=== PATIENT | female | born 1990 | race Two or more races ===

== ENCOUNTER 2018-06-22 06:31 | Emergency (ER) | payer SELFPAY ==
[~2018-06-22] VITALS: Ht 162.6 cm; Wt 63.5 kg
[~2018-06-22 06:31] MED LIST: FLUC150T PO; METR-84 PO
[2018-06-22 06:40] VITALS: BP 115/67
[2018-06-22] MEDS ORDERED: LORazepam 1 MG TABLET PO ONE (07:00)
[2018-06-22 08:30] LABS: BASO % 1 % (0-3); EOS # 0.1 x10^3/uL (0.0-0.7); EOS % 1 % (0-3); HEMATOCRIT 30.6 % (36.0-47.0); HEMOGLOBIN 10.1 g/dL (12.0-15.5); LYMPH # 1.4 x10^3/uL (1.0-4.8); LYMPH % 23 % (24-48); MEAN CORPUSCULAR HEMOGLOBIN 23 pg (25-35); MEAN CORPUSCULAR HGB CONC 33 g/dL (31-37); MEAN CORPUSCULAR VOLUME 71 fL (79-100); MONO # 0.5 x10^3/uL (0.0-1.1); MONO % 9 % (0-9); NEUT # 3.9 x10^3uL (1.8-7.7); NEUT % 66 % (31-73); PLATELET COUNT 253 x10^3/uL (140-400); RED BLOOD COUNT 4.31 x10^6/uL (3.50-5.40); RED CELL DISTRIBUTION WIDTH 15.3 % (11.5-14.5); WHITE BLOOD COUNT 5.9 x10^3/uL (4.0-11.0)
[2018-06-22 08:43] LABS: CALCIUM 9.2 mg/dL (8.5-10.1); CREATININE 0.6 mg/dL (0.6-1.0); POTASSIUM 3.7 mmol/L (3.5-5.1)
[2018-06-22 08:49] LABS: ALBUMIN 3.8 g/dL (3.4-5.0); ALBUMIN/GLOBULIN RATIO 0.9 (1.0-1.7); TOTAL BILIRUBIN 0.5 mg/dL (0.2-1.0); TOTAL PROTEIN 8.1 g/dL (6.4-8.2)
[2018-06-22 08:50] LABS: ACETAMIN < 2.0 mcg/ml (10-30); ETHANOL < 10 mg/dL (0-10); SALIC < 2.8 mg/dL (2.8-20.0)
[2018-06-22 10:37] LABS: PLT ESTIMATE ADEQUATE (ADEQUATE)
[2018-06-22 10:38] LABS: ANISOCYTOSIS PRESENT; HYPOCHROMIA PRESENT; MICROCYTOSIS PRESENT
--- NOTE | 2018-06-22 10:38 | PHYS DOC ---
Past Medical History Past Medical History: No Pertinent History Past Surgical History: No Surgical History Alcohol Use: Occasionally Drug Use: None Adult General Chief Complaint Chief Complaint: DEPRESSION HPI HPI Patient is a 27 year old [female who presents with severe stress. Apparently she walking her apartment 2 days ago and witnessed the recent head body of her apparently he committed suicide just moments before. Since then she has not been able to eat or drink she has not been talking she is rolled up in a ball she is crying constantly she has multiple children at home. She denies suicidality she does have a prior history of depression she is brought in by her to family members Review of Systems Review of Systems Unable secondary to patient cooperation Current Medications Current Medications Current Medications Medications (Trade) Dose Ordered Sig/Doretha Start Time Stop Time Status Last Admin Dose Admin Lorazepam (Ativan) 2 mg 1X ONCE 06/22/18 07:00 06/22/18 07:01 DC 06/22/18 07:03 2 MG Allergies Allergies Allergies Coded Allergies Type Severity Reaction Last Updated Verified No Known Drug Allergies 01/19/14 No Physical Exam Physical Exam Constitutional: Well developed, well nourished, no acute distress, non-toxic appearance. [] HENT: Normocephalic, atraumatic, bilateral external ears normal, oropharynx moist, no oral exudates, nose normal. [] Eyes: PERRLA, EOMI, conjunctiva normal, no discharge. [] Neck: Normal range of motion, no tenderness, supple, no stridor. [] Pulmonary: Normal respiratory effort no increased work of breathing no obvious chest wall trauma Abdomen: Bowel sounds normal, soft, no tenderness, no masses, no pulsatile masses. [] Skin: Warm, dry, no erythema, no rash. [] Back: No tenderness, no CVA tenderness. [] Extremities: No tenderness, no cyanosis, no clubbing, ROM intact, no edema. [] Neurologic: Alert and oriented X 3, normal motor function, normal sensory function, no focal deficits noted. [] Psychologic: Tearful withdrawn not making eye contact denies suicidal ideation Current Patient Data Vital Signs Vital Signs Date Time Temp Pulse Resp B/P (MAP) Pulse Ox O2 Delivery O2 Flow Rate FiO2 06/22/18 06:40 99.0 81 16 115/67 (83) 98 Room Air 99.0 Lab Values Laboratory Tests Test 06/22/18 08:15 06/22/18 09:33 White Blood Count 5.9 x10^3/uL (4.0-11.0) Red Blood Count 4.31 x10^6/uL (3.50-5.40) Hemoglobin 10.1 g/dL (12.0-15.5) L Hematocrit 30.6 % (36.0-47.0) L Mean Corpuscular Volume 71 fL (79-100) L Mean Corpuscular Hemoglobin 23 pg (25-35) L Mean Corpuscular Hemoglobin Concent 33 g/dL (31-37) Red Cell Distribution Width 15.3 % (11.5-14.5) H Platelet Count 253 x10^3/uL (140-400) Neutrophils (%) (Auto) 66 % (31-73) Lymphocytes (%) (Auto) 23 % (24-48) L Monocytes (%) (Auto) 9 % (0-9) Eosinophils (%) (Auto) 1 % (0-3) Basophils (%) (Auto) 1 % (0-3) Neutrophils # (Auto) 3.9 x10^3uL (1.8-7.7) Lymphocytes # (Auto) 1.4 x10^3/uL (1.0-4.8) Monocytes # (Auto) 0.5 x10^3/uL (0.0-1.1) Eosinophils # (Auto) 0.1 x10^3/uL (0.0-0.7) Basophils # (Auto) 0.0 x10^3/uL (0.0-0.2) Platelet Estimate Pending Sodium Level 139 mmol/L (136-145) Potassium Level 3.7 mmol/L (3.5-5.1) Chloride Level 103 mmol/L (98-107) Carbon Dioxide Level 27 mmol/L (21-32) Anion Gap 9 (6-14) Blood Urea Nitrogen 11 mg/dL (7-20) Creatinine 0.6 mg/dL (0.6-1.0) Estimated GFR (Cockcroft-Gault) 119.0 BUN/Creatinine Ratio 18 (6-20) Glucose Level 104 mg/dL (70-99) H Calcium Level 9.2 mg/dL (8.5-10.1) Total Bilirubin 0.5 mg/dL (0.2-1.0) Aspartate Amino Transferase (AST) 14 U/L (15-37) L Alanine Aminotransferase (ALT) 19 U/L (14-59) Alkaline Phosphatase 62 U/L (46-116) Total Protein 8.1 g/dL (6.4-8.2) Albumin 3.8 g/dL (3.4-5.0) Albumin/Globulin Ratio 0.9 (1.0-1.7) L Salicylates Level < 2.8 mg/dL (2.8-20.0) L Salicylate Last Dose Date Unknown Salicylate Last Dose Time Unknown Acetaminophen Level < 2.0 mcg/ml (10-30) L Acetaminophen Last Dose Date Unknown Acetaminophen Last Dose Time Unknown Ethyl Alcohol Level < 10 mg/dL (0-10) POC Urine HCG, Qualitative Hcg negative (Negative) Laboratory Tests 06/22/18 08:15 Laboratory Tests 06/22/18 08:15 EKG EKG [] Radiology/Procedures Radiology/Procedures [] Course & Med Decision Making Course & Med Decision Making Pertinent Labs and Imaging studies reviewed. (See chart for details) []Acute stress reaction. Patient is apparently unable to eat or drink or talk much. She is in severe tearful distress. She is denying overt suicidal ideation Mary Lou came to see her from the psychiatric assessment team with the plan to send her to [facility] to keep her safe tonight as well as to get her into counseling and further treatment tomorrow. Medically cleared Phan Disclaimer Dragon Disclaimer This electronic medical record was generated, in whole or in part, using a voice recognition dictation system. Departure Departure Impression: Primary Impression: Acute stress reaction Disposition: 01 HOME, SELF-CARE Condition: STABLE Additional Instructions: THANK YOU FOR COMING TO ER. PLEASE GO TO I FROM HERE FOR FURTHER SUPPORT AND COUNSELING TANISHA TAVAREZ MD Jun 22, 2018 10:38
[2018-06-22 10:43] LABS: AMPHETAMINE/METHAMPHETAMINE NEG (NEG); BARBITURATES NEG (NEG); BENZODIAZEPINES NEG (NEG); CANNABINOIDS NEG (NEG); COCAINE NEG (NEG); METHADONE NEG (NEG); OPIATES NEG (NEG); PHENCYCLIDINE NEG (NEG)
== END 2018-06-22 10:41 | disposition home or self-care (01) ==
LOC: ER 06:31
DX: F43.0 Acute stress reaction (principal); F32.9 Major depressive disorder, single episode, unspecified
CPT/HCPCS: 36415; 80053; 80307; 80329; 81025; 85025; 99283; G0480; G6039

== ENCOUNTER 2018-08-03 08:06 | Emergency (ER) | payer SELFPAY ==
[~2018-08-03] VITALS: Ht 162.6 cm; Wt 61.3 kg
[2018-08-03 08:12] VITALS: BP 111/56
[2018-08-03] MEDS ORDERED: KETOROLAC 60 MG/2 ML VIAL. IM ONE (08:30)
--- NOTE | 2018-08-03 08:47 | RAD ---
CHEST PA LATERAL Clinical indications: PT STATES CHEST PAIN THAT RADIATES UP INTO SHOULDER, STARTED YESTERDAY. COMPARISON: None available. Findings: No acute lung infiltrate or pleural effusion or pulmonary edema or lung mass or pneumothorax is seen. The heart size, pulmonary vasculature, mediastinum and both corbin are unremarkable. The osseous structures appear intact. Impression: No acute radiographic abnormality is seen. Electronically signed by: Fred Ferreira MD (08/03/2018 8:43 AM) [facility]
--- NOTE | 2018-08-03 08:53 | PHYS DOC ---
Past Medical History Past Medical History: No Pertinent History Past Surgical History: No Surgical History Alcohol Use: Occasionally Drug Use: None Adult General Chief Complaint Chief Complaint: CHEST WALL PAIN HPI HPI Patient is a 27 year old female presents for evaluation of cough and left upper chest pain for 2-3 days. She reports his had similar episodes over the past week. Denies any fevers. Has not tried any medication at home prior to coming to the emergency room. As any shortness of breath. Does not use any oral contraceptives. Reports pain in this area when she moves. Review of Systems Review of Systems Constitutional: Denies fever or chills [] Eyes: Denies change in visual acuity, redness, or eye pain [] HENT: Denies nasal congestion or sore throat [] Respiratory: + cough, denies shortness of breath [] Cardiovascular: No additional information not addressed in HPI [] GI: Denies abdominal pain, nausea, vomiting, bloody stools or diarrhea [] : Denies dysuria or hematuria [] Musculoskeletal: Denies back pain or joint pain [] Integument: Denies rash or skin lesions [] Neurologic: Denies headache, focal weakness or sensory changes [] Endocrine: Denies polyuria or polydipsia [] All other systems were reviewed and found to be within normal limits, except as documented in this note. Current Medications Current Medications Current Medications Medications (Trade) Dose Ordered Sig/Doretha Start Time Stop Time Status Last Admin Dose Admin Ketorolac Tromethamine (Toradol Im) 30 mg 1X ONCE 08/03/18 08:30 08/03/18 08:31 DC 08/03/18 08:45 30 MG Allergies Allergies Allergies Coded Allergies Type Severity Reaction Last Updated Verified No Known Drug Allergies 01/19/14 No Physical Exam Physical Exam Constitutional: Well developed, well nourished, no acute distress, non-toxic appearance. [] Neck: Normal range of motion, no tenderness, supple, no stridor. [] Cardiovascular:Heart rate regular rhythm, no murmur [] Lungs & Thorax: Bilateral breath sounds clear to auscultation [] Skin: Warm, dry, no erythema, no rash. [] Back: No tenderness, no CVA tenderness. [] Extremities: No tenderness, no cyanosis, no clubbing, ROM intact, no edema. [] Neurologic: Alert and oriented X 3, normal motor function, normal sensory function, no focal deficits noted. [] Psychologic: Affect normal, judgement normal, mood normal. [] Current Patient Data Vital Signs Vital Signs Date Time Temp Pulse Resp B/P (MAP) Pulse Ox O2 Delivery O2 Flow Rate FiO2 08/03/18 08:12 98.1 86 16 111/56 (74) 100 Room Air 98.1 Lab Values Laboratory Tests Test 08/03/18 08:40 POC Troponin I 0.00 ng/ml (<0.08) EKG EKG [EKG, read by ER physician, heart rate 72, normal sinus rhythm, no STEMI] Radiology/Procedures Radiology/Procedures [REASON: chest pain PROCEDURE: CHEST PA & LATERAL CHEST PA LATERAL Clinical indications: PT STATES CHEST PAIN THAT RADIATES UP INTO SHOULDER, STARTED YESTERDAY. COMPARISON: None available. Findings: No acute lung infiltrate or pleural effusion or pulmonary edema or lung mass or pneumothorax is seen. The heart size, pulmonary vasculature, mediastinum and both corbin are unremarkable. The osseous structures appear intact. Impression: No acute radiographic abnormality is seen. Electronically signed by: Miguel Ferreira MD (08/03/2018 8:43 AM) [facility] DICTATED and SIGNED BY: MIGUEL FERREIRA MD DATE: 08/03/18 0842] Course & Med Decision Making Course & Med Decision Making Pertinent Labs and Imaging studies reviewed. (See chart for details) [Cardiac etiology is unlikely, troponin negative, EKG normal sinus rhythm, patient is given IM Toradol and recommend follow-up with primary care doctor.] Dragon Disclaimer Dragon Disclaimer This electronic medical record was generated, in whole or in part, using a voice recognition dictation system. Departure Departure Impression: Primary Impression: Atypical chest pain Disposition: HOME, SELF-CARE Condition: STABLE Referrals: CAYDEN SHAIKH MD (PCP) Patient Instructions: Chest Pain (Nonspecific), [id number] CAROL ANN PEREA MORTGAGE PROCESSING CLERK Aug 03, 2018 08:53
--- NOTE | 2018-08-03 10:11 | EKG ---
[facility] [address] [place] [address] Test Date: 2018-08-03 Test Time: 08:12:08 Pat Name: ARPIT DAWSON Department: Room: Gender: F Manager Provider Relations: : 1990 Requested By: CAROL ANN PEREA Order Number: [id number] Reading MD: Measurements Intervals [place] Rate: 72 P: 63 NH: 128 QRS: 46 QRSD: 94 T: 46 QT: 372 QTc: 408 Interpretive Statements SINUS RHYTHM NORMAL ECG No previous ECG available for comparison
== END 2018-08-03 09:20 | disposition home or self-care (01) ==
LOC: ER 08:06
DX: R07.89 Other chest pain (principal); R05 Cough; R06.02 Shortness of breath
CPT/HCPCS: 71046; 84484; 93005; 96372; 99283; J1885

== ENCOUNTER 2019-01-10 17:07 | Emergency (ER) | payer SELFPAY ==
[~2019-01-10] VITALS: Ht 162.6 cm; Wt 59.0 kg
[~2019-01-10 17:07] MED LIST changes: +METR-34 PO; -METR-84 PO
[2019-01-10 17:22] LABS: BILIRUBIN,URINE NEGATIVE (NEG); CLARITY,URINE CLEAR; COLOR,URINE YELLOW; NITRITE,URINE NEGATIVE (NEG); PH,URINE 5.5; PROTEIN,URINE NEGATIVE (NEG-TRACE)
[2019-01-10 17:25] LABS: U PREG PATIENT NEGATIVE (NEG)
[2019-01-10 17:30] LABS: BACTERIA,URINE 0 /HPF (0-FEW); RBC,URINE 0 /HPF (0-2); SQUAMOUS EPITHELIAL CELL,UR MOD /LPF
[2019-01-10 18:17] VITALS: BP 114/68
--- NOTE | 2019-01-10 18:36 | PHYS DOC ---
Past Medical History Past Medical History: No Pertinent History (MARTI MAR APRN) Past Surgical History: No Surgical History (MARTI MAR APRN) Alcohol Use: Occasionally Drug Use: None (MARTI MAR APRN) Adult General Chief Complaint Chief Complaint: URINARY FREQUENCY HPI HPI Patient is a 28 year old female who presents to the emergency department with complaints of dysuria for 2 days. She also reports concerns of a possible sexually transmitted infection, patient states that she had intercourse with a new partner approximately 5 days ago and the condom broke. She denies any irregular vaginal discharge, vaginal itching, or vaginal odor. She denies any fever, nausea, vomiting, diarrhea, abdominal pain, hematuria, or back pain. Patient denies any pain at this time. (MARTI MAR APRN) Review of Systems Review of Systems Constitutional: Denies fever or chills [] Eyes: Denies redness, or eye pain [] HENT: Denies nasal congestion or sore throat [] Respiratory: Denies cough or shortness of breath [] Cardiovascular: No additional information not addressed in HPI [] GI: Denies abdominal pain, nausea, vomiting,or diarrhea [] : reports dysuria, denies abnormal vaginal discharge, reports concerns of STI as had a condom break 4 days ago. Musculoskeletal: Denies back pain or joint pain [] Integument: Denies rash or skin lesions [] Neurologic: Denies headache, focal weakness or sensory changes [] Complete systems were reviewed and found to be within normal limits, except as documented in this note. (MARTI MAR APRN) Current Medications Current Medications Current Medications Medications (Trade) Dose Ordered Sig/Doretha Start Time Stop Time Status Last Admin Dose Admin Azithromycin (Zithromax) 1,000 mg 1X ONCE 01/10/19 18:45 01/10/19 18:46 DC 01/10/19 18:31 1,000 MG Ceftriaxone Sodium (Rocephin Im) 250 mg 1X ONCE 01/10/19 18:45 01/10/19 18:46 DC 01/10/19 18:31 250 MG (LASHON FRIEND DO) Allergies Allergies Allergies Coded Allergies Type Severity Reaction Last Updated Verified No Known Drug Allergies 01/19/14 No (LASHON FRIEND DO) Physical Exam Physical Exam Constitutional: Well developed, well nourished, no acute distress, non-toxic appearance. [] HENT: Normocephalic, atraumatic, bilateral external ears normal, nose normal. [] Eyes: conjunctiva normal, no discharge. [] Neck: Normal range of motion, no stridor. [] Cardiovascular:Heart rate regular rhythm Lungs & Thorax: Bilateral breath sounds clear to auscultation [] Pelvic Exam: Frame Coverer present Abdomen: Nontender External Genitalia: mild erythema of labia Speculum: Normal vaginal mucosa, normal cervical discharge; large amount of white discharge Bimanual: No adnexal masses or tenderness, No CMT Skin: Warm, dry, no erythema, no rash. [] Extremities: No cyanosis, ROM intact, no edema. [] Neurologic: Alert and oriented X 3, no focal deficits noted. [] Psychologic: Affect normal, judgement normal, mood normal. [] (MARTI MAR APRN) Current Patient Data Vital Signs Vital Signs Date Time Temp Pulse Resp B/P (MAP) Pulse Ox O2 Delivery O2 Flow Rate FiO2 01/10/19 18:17 98.3 73 18 114/68 (83) 99 Room Air 98.3 (LASHON FRIEND DO) Lab Values Laboratory Tests Test 01/10/19 17:00 01/10/19 17:16 Urine Collection Type Unknown Urine Color Yellow Urine Clarity Clear Urine pH 5.5 Urine Specific [place] 1.025 Urine Protein Negative mg/dL (NEG-TRACE) Urine Glucose (UA) Negative mg/dL (NEG) Urine Ketones (Stick) Negative mg/dL (NEG) Urine Blood Negative (NEG) Urine Nitrite Negative (NEG) Urine Bilirubin Negative (NEG) Urine Urobilinogen Dipstick 1.0 mg/dL (0.2 mg/dL) Urine Leukocyte Esterase Negative (NEG) Urine RBC 0 /HPF (0-2) Urine WBC 1-4 /HPF (0-4) Urine Squamous Epithelial Cells Mod /LPF Urine Bacteria 0 /HPF (0-FEW) Urine Mucus Marked /LPF Urine Test Negative (NEG) POC Urine HCG, Qualitative Hcg negative (Negative) Microbiology 01/10/19 Wet Prep - Final, Complete (LASHON FRIEND DO) EKG EKG [] (MARTI MAR APRN) Radiology/Procedures Radiology/Procedures [] (MARTI MAR APRN) Course & Med Decision Making Course & Med Decision Making Pertinent Labs and Imaging studies reviewed. (See chart for details) dx: Bacterial vaginosis, contact with the next suspected exposure to STI, contact with new sexual partner. Wet mount positive for clue cells suggestive of bacterial vaginosis UA unremarkable Gonorrhea and chlamydia tests are pending Patient was treated prophylactically with 250 mg of IM Rocephin, and 1 g of PO Zithromax. Patient was instructed to avoid having intercourse until the results of gonorrhea and chlamydia testing are available, patient was notified that these results would not be available for 48 hours. If one or both of these tests is positive, patient needs to refrain from intercourse for approximately 1 week following the treatment of any current partners. Patient verbalized an understanding of home care, medications, follow-up, and return to ED instructions and was in agreement with the plan of care. [] (MARTI MAR APRN) Dragon Disclaimer Dragon Disclaimer This electronic medical record was generated, in whole or in part, using a voice recognition dictation system. (MARTI MAR APRN) Departure Departure Impression: Primary Impression: Bacterial vaginosis Additional Impressions: Contact with and (suspected) exposure to infections with a predominantly sexual mode of transmission Contact with new sexual partner Disposition: 01 HOME, SELF-CARE Condition: STABLE Referrals: CAYDEN SHAIKH MD (PCP) Patient Instructions: Bacterial Vaginosis, [id number], Sexually Transmitted Disease, [id number] Additional Instructions: Fill the prescription and use it as directed. You were treated for suspected sexually transmitted infection. You need to avoid having intercourse until the results of gonorrhea and chlamydia testing are available, these results will not be available for 48 hours. If one or both of these tests is positive, you need to refrain from intercourse for approximately 1 week following the treatment of any current partners. Follow-up with your primary care doctor if symptoms persist, return to the ER if symptoms worsen. Scripts Metronidazole (FLAGYL) 500 Mg Tablet 1 TAB PO BID for 7 Days, #14 TAB 0 Refills Prov: MARTI MAR APRN 01/10/19 Attending Signature Attending Signature I have reviewed the PA/NET WEB DEVELOPER's note and plan of care. I was available for consultation as needed during the patient's visit in the emergency department. I agree with the clinical impression, plan, and disposition. (LASHON FRIEND DO) Problem Qualifiers MARTI MAR ROLLER Jan 10, 2019 18:36 LASHON FRIEND DO Jan 11, 2019 05:23
[2019-01-10] MEDS ORDERED: AZITHROMYCIN 250 MG TABLET. PO ONE (18:45)
[2019-01-10] MEDS ORDERED: cefTRIAXone IM 250 MG VIAL IM ONE (18:45)
[2019-01-10] MEDS ORDERED: METR500T PO (18:46)
[2019-01-13 00:07] LABS: GC PROBE Negative (Negative)
== END 2019-01-10 19:03 | disposition home or self-care (01) ==
LOC: ER 17:07
DX: N76.0 Acute vaginitis (principal); B96.89 Other specified bacterial agents as the cause of diseases classified elsewhere; Z20.2 Contact with and (suspected) exposure to infections with a predominantly sexual mode of transmission
CPT/HCPCS: 81001; 81025; 87491; 87591; 96372; 99285; J0696; Q0111; Q0144

== ENCOUNTER 2020-05-30 00:36 | Emergency (ER) | payer SELFPAY ==
[~2020-05-30] VITALS: Ht 162.6 cm; Wt 65.7 kg
[~2020-05-30 00:36] MED LIST changes: +METR500T PO
[2020-05-30 02:26] LABS: BASO # 0.1 x10^3/uL (0.0-0.2); BASO % 1 % (0-3); EOS # 0.2 x10^3/uL (0.0-0.7); EOS % 2 % (0-3); HEMATOCRIT 28.2 % (36.0-47.0); HEMOGLOBIN 8.8 g/dL (12.0-15.5); LYMPH # 2.4 x10^3/uL (1.0-4.8); LYMPH % 25 % (24-48); MEAN CORPUSCULAR HEMOGLOBIN 20 pg (25-35); MEAN CORPUSCULAR HGB CONC 31 g/dL (31-37); MEAN CORPUSCULAR VOLUME 65 fL (79-100); MONO # 0.7 x10^3/uL (0.0-1.1); MONO % 7 % (0-9); NEUT # 6.3 x10^3/uL (1.8-7.7); NEUT % 65 % (31-73); PLATELET COUNT 294 x10^3/uL (140-400); RED BLOOD COUNT 4.33 x10^6/uL (3.50-5.40); RED CELL DISTRIBUTION WIDTH 18.3 % (11.5-14.5); WHITE BLOOD COUNT 9.6 x10^3/uL (4.0-11.0)
[2020-05-30 02:49] LABS: BILIRUBIN,URINE NEGATIVE (NEG); CLARITY,URINE BLOODY; COLOR,URINE RED; NITRITE,URINE NEGATIVE (NEG); PH,URINE 6.5 (<5.0-8.0); PROTEIN,URINE 100 mg/dL (NEG-TRACE); RBC,URINE TNTC /HPF (0-2); UROBILINOGEN,URINE 0.2 mg/dL (0.2 mg/dL)
[2020-05-30 02:50] LABS: BACTERIA,URINE FEW /HPF (0-FEW)
[2020-05-30 03:31] LABS: ANISOCYTOSIS SLIGHT; HYPOCHROMIA MARKED; MICROCYTOSIS MOD; PLT ESTIMATE ADEQUATE (ADEQUATE)
--- NOTE | 2020-05-30 04:54 | ED.ADGEN ---
Past Medical History Past Medical History: No Pertinent History Past Surgical History: No Surgical History Smoking Status: Never Smoker Alcohol Use: Occasionally Drug Use: None General Adult EDM: Chief Complaint: VAGINAL BLEEDING HPI: HPI: Patient is a 29-year-old female at 4 weeks gestation who presents to the emergency room with vaginal bleeding and lower abdominal cramping that started earlier today. She does not believe she has seen any passage of tissue. She has not had an ultrasound yet with this . She denies any other symptoms. Review of Systems: Review of Systems: Complete ROS is negative unless otherwise documented in HPI Allergies: Allergies: Allergies Coded Allergies Type Severity Reaction Last Updated Verified No Known Drug Allergies 01/19/14 No Physical Exam: PE: General: Awake, alert, NAD. Well Nourished, well hydrated. Cooperative HEENT: Atraumatic, EOMI, PERRL, airway patent, moist oral mucosa Neck: Supple, trachea midline Respiratory: CTA bilaterally, normal effort, no wheezing/crackles CV: RRR, no murmur, cap refill <2 GI: Soft, nondistended, nontender, no masses MSK: No obvious deformities Skin: Warm, dry, intact Neuro: A&O x3, speech NL, sensory and motor grossly intact, no focal deficits Psych: Normal affect, normal mood, not suicidal or homicidal Current Patient Data: Labs: Laboratory Tests Test 05/30/20 02:06 05/30/20 02:07 05/30/20 02:10 White Blood Count 9.6 x10^3/uL (4.0-11.0) Red Blood Count 4.33 x10^6/uL (3.50-5.40) Hemoglobin 8.8 g/dL (12.0-15.5) L Hematocrit 28.2 % (36.0-47.0) L Mean Corpuscular Volume 65 fL (79-100) L Mean Corpuscular Hemoglobin 20 pg (25-35) L Mean Corpuscular Hemoglobin Concent 31 g/dL (31-37) Red Cell Distribution Width 18.3 % (11.5-14.5) H Platelet Count 294 x10^3/uL (140-400) Neutrophils (%) (Auto) 65 % (31-73) Lymphocytes (%) (Auto) 25 % (24-48) Monocytes (%) (Auto) 7 % (0-9) Eosinophils (%) (Auto) 2 % (0-3) Basophils (%) (Auto) 1 % (0-3) Neutrophils # (Auto) 6.3 x10^3/uL (1.8-7.7) Lymphocytes # (Auto) 2.4 x10^3/uL (1.0-4.8) Monocytes # (Auto) 0.7 x10^3/uL (0.0-1.1) Eosinophils # (Auto) 0.2 x10^3/uL (0.0-0.7) Basophils # (Auto) 0.1 x10^3/uL (0.0-0.2) Platelet Estimate Adequate (ADEQUATE) Hypochromasia Marked Anisocytosis Slight Microcytosis Mod Maternal Serum HCG Beta Subunit 690 mIU/mL (0-5) H Urine Collection Type Unknown Urine Color Red Urine Clarity Bloody Urine pH 6.5 (<5.0-8.0) Urine Specific [place] 1.015 (1.000-1.030) Urine Protein 100 mg/dL (NEG-TRACE) Urine Glucose (UA) Negative mg/dL (NEG) Urine Ketones (Stick) Negative mg/dL (NEG) Urine Blood Large (NEG) Urine Nitrite Negative (NEG) Urine Bilirubin Negative (NEG) Urine Urobilinogen Dipstick 0.2 mg/dL (0.2 mg/dL) Urine Leukocyte Esterase Trace (NEG) Urine RBC Tntc /HPF (0-2) Urine WBC 1-4 /HPF (0-4) Urine Squamous Epithelial Cells Mod /LPF Urine Bacteria Few /HPF (0-FEW) Urine Mucus Slight /LPF POC Urine HCG, Qualitative Hcg positive (Negative) Laboratory Tests 05/30/20 02:06 Vital Signs: Vital Signs Date Time Temp Pulse Resp B/P (MAP) Pulse Ox O2 Delivery O2 Flow Rate FiO2 05/30/20 01:30 98.4 72 16 120/81 (94) 98 Room Air 98.4 EKG: EKG: [] Heart Score: Risk Factors: Risk Factors: DM, Current or recent (<one month) smoker, HTN, HLP, family history of CAD, obesity. Risk Scores: Score 0 - 3: 2.5% MACE over next 6 weeks - Discharge Home Score 4 - 6: 20.3% MACE over next 6 weeks - Admit for Clinical Observation Score 7 - 10: 72.7% MACE over next 6 weeks - Early Invasive Strategies Radiology/Procedures: Radiology/Procedures: [] Course & Med Decision Making: Course & Med Decision Making Pertinent Labs and Imaging studies reviewed. (See chart for details) Patient is a 29-year-old female who presents to the emergency room with vaginal bleeding and cramping in early . Patient has a positive test and a beta-hCG of 600. CBC, type and screen, ultrasound were ordered to evaluate for need of RhoGam, amount of bleeding, and for an ectopic . Patient does not need rhogam. US does not show definitive . This could be related to miscarriage vs early . Patient will follow up in 2-3 days for repeat evaluation. Patient's test results and vitals while in the ED were fully reviewed and discussed with the patient. Patient is stable and at this time does not need admission to the hospital. We have discussed strict return precautions and the importance of following up with their Primary Care Physician. Patient stated understanding and was given an opportunity to ask any questions. Patient is in agreement with plan. Dragon Disclaimer: Dragon Disclaimer: This electronic medical record was generated, in whole or in part, using a voice recognition dictation system. Departure Departure Impression: Primary Impression: Threatened Disposition: 01 DC HOME SELF CARE/HOMELESS Condition: STABLE Referrals: CAYDEN SHAIKH MD (PCP) Patient Instructions: Vaginal Bleeding During , Exlk-or-Tctb Additional Instructions: Follow up in 48 hours for repeat lab. JOSHUA PEREZ MD May 30, 2020 04:54
[2020-05-30 05:01] VITALS: BP 104/59
--- NOTE | 2020-05-30 05:08 | RAD ---
EXAMINATION: OB <14 WKS W/TV (PELVIC ULTRASOUND) HISTORY: Reason: vaginal bleeding, / Spl. Instructions: / History: TECHNIQUE: Sonography of the pelvis was performed by transvaginal and transabdominal (limited) techniques. COMPARISON: None FINDINGS: Uterus: Measures 9.6 x 4.5 x 3.8 cm. No definite intrauterine gestational sac visualized. 3 mm ovoid hypoechogenicity in the anterior myometrium, nonspecific. Endometrium measures 3 mm in thickness. Questionable mild fluid in the cervical canal. Right ovary: Measures 2.6 x 1.5 x 1.7 cm. Normal sonographic appearance with documented arterial and venous flow. Left ovary: Measures 3.2 x 1.4 x 1.3 cm. Normal sonographic appearance with documented arterial and venous flow. Pelvic free fluid: None. IMPRESSION: No definite intrauterine gestational sac visualized. Questionable mild fluid in the cervical canal, nonspecific. Electronically signed by: Tunde Manrique DO (05/30/2020 5:05 AM) [facility]
== END 2020-05-30 05:40 | disposition home or self-care (01) ==
LOC: ER 00:36
DX: O20.0 Threatened abortion (principal); R10.30 Lower abdominal pain, unspecified; Z3A.01 Less than 8 weeks gestation of pregnancy
CPT/HCPCS: 36415; 76801; 76817; 81001; 81025; 84702; 85025; 86850; 86900; 86901; 99285

== ENCOUNTER → 2020-06-06 | Outpatient (CLI) | payer MEDICAID ==
[2020-05-30 05:01] VITALS: BP 104/59
== END ==
LOC: LAB 16:22
PROVIDERS: ATTEND Obstetrics & Gynecology
DX: N93.9 Abnormal uterine and vaginal bleeding, unspecified (principal)
CPT/HCPCS: 36415; 84702

== ENCOUNTER 2020-08-20 22:49 | Emergency (ER) | payer MEDICAID ==
[~2020-08-20] VITALS: Ht 162.6 cm; Wt 61.4 kg
[2020-08-20 23:38] LABS: BILIRUBIN,URINE NEGATIVE (NEG); CLARITY,URINE CLEAR; COLOR,URINE YELLOW; NITRITE,URINE NEGATIVE (NEG); PH,URINE 6.5 (<5.0-8.0); PROTEIN,URINE NEGATIVE (NEG-TRACE)
[2020-08-20 23:58] LABS: BACTERIA,URINE MANY /HPF (0-FEW)
[2020-08-21] LABS: RBC,URINE 0 /HPF (0-2)
--- NOTE | 2020-08-21 00:40 | PHYS DOC ---
Past Medical History Past Medical History: No Pertinent History Past Surgical History: No Surgical History Smoking Status: Never Smoker Alcohol Use: Occasionally Drug Use: None Adult General Chief Complaint Chief Complaint: ABDOMINAL PAIN HPI HPI Patient is a 29 year old female with no significant past medical history presents emergency department complaint of new onset of abdominal pain. Patient states that 1 week ago she was starting to have right lower quadrant abdominal pain rating to the back and was seen in an urgent care where she was diagnosed with a urinary tract infection. Patient states that she took a course of antibiotics which she completed 2 days ago and successfully completed and had significant improvement of her symptoms. However 2 days ago started having new onset of right upper quadrant abdominal pain not associated any nausea, vomiting, fever, chills, chest pain or shortness breath. Denies any dizziness or lightheadedness. Currently denies any dysuria, pyuria, vaginal bleeding or discharge Review of Systems Review of Systems Constitutional: Denies fever or chills [] Eyes: Denies change in visual acuity, redness, or eye pain [] HENT: Denies nasal congestion or sore throat [] Respiratory: Denies cough or shortness of breath [] Cardiovascular: No additional information not addressed in HPI [] GI: Denies abdominal pain, nausea, vomiting, bloody stools or diarrhea [] : Denies dysuria or hematuria [] Musculoskeletal: Denies back pain or joint pain [] Integument: Denies rash or skin lesions [] Neurologic: Denies headache, focal weakness or sensory changes [] Endocrine: Denies polyuria or polydipsia [] All other systems were reviewed and found to be within normal limits, except as documented in this note. Allergies Allergies Allergies Coded Allergies Type Severity Reaction Last Updated Verified No Known Drug Allergies 01/19/14 No Physical Exam Physical Exam Constitutional: Well developed, well nourished, no acute distress, non-toxic appearance. [] HENT: Normocephalic, atraumatic, bilateral external ears normal, oropharynx moist, no oral exudates, nose normal. [] Eyes: PERRLA, EOMI, conjunctiva normal, no discharge. [] Neck: Normal range of motion, no tenderness, supple, no stridor. [] Cardiovascular:Heart rate regular rhythm, no murmur [] Lungs & Thorax: Bilateral breath sounds clear to auscultation [] Abdomen: Bowel sounds normal, soft, mild right upper quadrant tenderness, no masses, no pulsatile masses. [] Skin: Warm, dry, no erythema, no rash. [] Back: No tenderness, no CVA tenderness. [] Extremities: No tenderness, no cyanosis, no clubbing, ROM intact, no edema. [] Neurologic: Alert and oriented X 3, normal motor function, normal sensory function, no focal deficits noted. [] Psychologic: Affect normal, judgement normal, mood normal. [] Current Patient Data Vital Signs Vital Signs Date Time Temp Pulse Resp B/P (MAP) Pulse Ox O2 Delivery O2 Flow Rate FiO2 08/21/20 00:20 98.5 66 14 106/58 (74) 99 Room Air 98.5 Lab Values Laboratory Tests Test 08/20/20 23:03 08/20/20 23:07 Urine Collection Type Unknown Urine Color Yellow Urine Clarity Clear Urine pH 6.5 (<5.0-8.0) Urine Specific [place] 1.015 (1.000-1.030) Urine Protein Negative mg/dL (NEG-TRACE) Urine Glucose (UA) Negative mg/dL (NEG) Urine Ketones (Stick) Negative mg/dL (NEG) Urine Blood Negative (NEG) Urine Nitrite Negative (NEG) Urine Bilirubin Negative (NEG) Urine Urobilinogen Dipstick 1.0 mg/dL (0.2 mg/dL) Urine Leukocyte Esterase Moderate (NEG) Urine RBC 0 /HPF (0-2) Urine WBC 1-4 /HPF (0-4) Urine Squamous Epithelial Cells Many /LPF Urine Bacteria Many /HPF (0-FEW) Urine Mucus Mod /LPF POC Urine HCG, Qualitative Hcg negative (Negative) EKG EKG [] Radiology/Procedures Radiology/Procedures [] Course & Med Decision Making Course & Med Decision Making Pertinent Labs and Imaging studies reviewed. (See chart for details) 29-year-old female presented with new onset right upper quadrant abdominal pain with very minimal tenderness in the area already had a negative work-up. No fever at that time. At this time will get a right upper quadrant ultrasound to make sure there is no evidence of underlying cholecystitis or cholelithiasis. US negative for any gallbladder pathology. PT feeling well. Will discharge home. Dragon Disclaimer Dragon Disclaimer This electronic medical record was generated, in whole or in part, using a voice recognition dictation system. Departure Departure Impression: Primary Impression: Abdominal pain Disposition: 01 DC HOME SELF CARE/HOMELESS Condition: GOOD Referrals: CAYDEN SHAIKH MD (PCP) Patient Instructions: Abdominal Pain Additional Instructions: EMERGENCY DEPARTMENT GENERAL DISCHARGE INSTRUCTIONS Thank you for coming to [facility] Emergency Department (ED) today and trusting us with you care. We trust that you had a positive experience in our Emergency Department. If you wish to speak to the department management, you may call the Director at [phone]. YOUR FOLLOW UP INSTRUCTIONS ARE FOLLOWS: 1. Do you have a private Doctor? If you do not have a private doctor, please ask for a resource list of physicians or clinics that may be able to assist you with follow up care. 2. The Emergency Physicain has interpreted your x-rays. The X-Ray specialist will also review them. If there is a change in the findings, you will be notified in 48 hours when at all possible. 3. A lab test or culture has been done, your results will be reviewed and you will be notified if you need a change in treatment. ADDITIONAL INSTRUCTIONS AND INFORMATION: 1. Your care today has been supervised by a physician who is specially trained in emergency care. Many problems require more than one evaluation for a complete diagnosis and treatment. We recommend that you schedule your follow up appointment as recomme nded to ensure complete treatment of you illness or injury. If you are unable to obtain follow up care and continue to have a problem, or if your condition worsens, we recommend that you return to the ED. 2. We are not able to safely determine your condition over the phone nor are we able to give sound medical advice over the phone. For these safety reasons, if you call for medical advice we will ask you to come to the ED for further evaluation. 3. If you have any questions regarding these discharge instructions please call the ED at [phone]. SAFETY INFORMATION: In the interest of safety, wellness, and injury prevention; we encourage you to wear your sealbelt, if you smoke; quite smoking, and we encourage family to use a protective helmet for bicycling and other sporting events that present an increased risk for head injury. IF YOUR SYMPTOMS WORSEN OR NEW SYMPTOMS DEVELOP, OR YOU HAVE CONCERNS ABOUT YOUR CONDITION; OR IF YOUR CONDITION WORSENS WHILE YOU ARE WAITING FOR YOUR FOLLOW UP APPOINTMENT; EITHER CONTACT YOUR PRIMARY CARE DOCTOR, THE PHYSICIAN WHOSE NAME AND NUMBER YOU WERE GIVEN, OR RETURN TO THE ED IMMEDIATELY. Scripts Omeprazole (OMEPRAZOLE) 20 Mg Capsule.dr 1 CAP PO DAILY, #30 CAP 5 Refills Prov: JOSH AMARAL MD 08/21/20 JOSH AMARAL MD Aug 21, 2020 00:40
--- NOTE | 2020-08-21 02:20 | RAD ---
Ultrasound of the right upper quadrant abdomen 08/21/20 HISTORY: Right upper quadrant abdominal pain. TECHNIQUE: A real-time ultrasound examination right upper quadrant abdomen was performed. Multiple im ages were obtained. FINDINGS: The gallbladder is slightly contracted. No gallstones are visualized. The gallbladder wall thickness is within normal limits. No pericholecystic fluid is seen. The common bile duct measures 2 mm in diameter which is within normal limits. The liver is normal in size measuring 14.9 cm in length. No focal abnormality of the liver is seen. T he pancreas and right kidney are within normal limits. No free fluid is noted. IMPRESSION: Negative study. Electronically signed by: Anthony Awad MD (08/21/2020 2:18 AM) [id number]
[2020-08-21 02:26] VITALS: BP 109/64
[2020-08-21] MEDS ORDERED: OMEP20CA16 PO (02:29)
== END 2020-08-21 02:34 | disposition home or self-care (01) ==
LOC: ER 22:49
DX: R10.11 Right upper quadrant pain (principal)
CPT/HCPCS: 76705; 81001; 81025; 87086; 99283; 99284-25

== ENCOUNTER → 2020-09-01 | Outpatient (CLI) | payer MEDICAID ==
[2020-08-21 02:26] VITALS: BP 109/64
[~2020-09-01] MED LIST changes: +OMEP20CA16 PO
--- NOTE | 2020-09-01 18:04 | RAD ---
INDICATION: Reason: RT SIDED PELVIC PAIN / Spl. Instructions: / History: COMPARISON: None. TECHNIQUE: Grayscale and color ultrasound images uterus and adnexa. FINDINGS: Uterus: 92 x 56 x 51 mm. Endometrial stripe is 8 mm Right Ovary: 31 x 26 x 30 mm. Left Ovary: 26 x 23 x 13 mm. Vascular flow identified to bilateral ovaries. IMPRESSION: * Vascular flow seen to the ovaries. Electronically signed by: Chandu Barton MD (09/01/2020 6:02 PM) [id number]
== END ==
LOC: US 15:30
PROVIDERS: ATTEND Family Medicine
DX: R10.2 Pelvic and perineal pain (principal)
CPT/HCPCS: 76856

== ENCOUNTER → 2020-10-04 | Outpatient (CLI) | payer MEDICAID ==
--- NOTE | 2020-10-04 15:36 | RAD ---
DATE: 10/04/2020 9:22 AM EXAM: DIGITAL DIAGNOSTIC BILATERAL, BREAST RIGHT HISTORY: 29-year-old woman with a reported palpable lump in the right breast identified on clinical exam by her referring provider. Patient denies any area of palpable concern on self exam. COMPARISON: None. This will serve as a baseline. Bilateral full field craniocaudal and mediolateral oblique images were obtained using digital technique. X CCL views were also obtained of both breasts. This study was interpreted with the benefit of Computerized Aided Detection (CAD). Targeted ultrasound of the right breast in the general area of reported palpable concern as identified by the patient was also performed. FINDINGS: Breast Density: DENSE The breast Parenchyma is dense, which could reduce the sensitivity of mammography. Breast parenchyma level density D. Targeted ultrasound of the right breast in the reported area of palpable concern spanning the 11 through 1:00 position was performed showing extremely dense breast parenchyma. No dominant mass, architectural distortion or suspicious sonographic findings. Ultrasound of the right axilla revealed no adenopathy. The bilateral mammogram shows no suspicious masses, microcalcifications or architectural distortion is present to suggest malignancy in either breast. The visualized axillae are unremarkable. IMPRESSION: No evidence of malignancy. BI-RADS CATEGORY: 1 NEGATIVE RECOMMENDED FOLLOW-UP: CLIN FOLLOW UP IMAGING CLINICALLY INDICATED Recommend clinical management of the area of palpable concern, including biopsy if there are any clinically suspicious findings. If there are no clinically suspicious findings, age-appropriate routine annual mammographic screening starting at age 40 in average risk women is recommended. Discussed with patient. PQRS compliance statement: Patient information was entered into a reminder system with a target due date for the next mammogram. Mammography is a sensitive method for finding small breast cancers, but it does not detect them all and is not a substitute for careful clinical examination. A negative mammogram does not negate a clinically suspicious finding and should not result in delay in biopsying a clinically suspicious abnormality. "Our facility is accredited by the [employer] Mammography Program."
== END ==
LOC: US 08:34
PROVIDERS: ATTEND Family Medicine
DX: N63.10 Unspecified lump in the right breast, unspecified quadrant (principal)
CPT/HCPCS: 76641; 77066